=== PATIENT | male | born 1975 | race Hispanic/Latino ===

== ENCOUNTER → 2020-02-16 | Outpatient (CLI) | payer BC ==
--- NOTE | 2020-02-16 15:46 | RAD ---
EXAM DESCRIPTION: Pelvis CLINICAL HISTORY: HIP PAIN COMPARISON: None. TECHNIQUE: AP pelvis FINDINGS: Phleboliths are observed in the left side the pelvis. The hips are intact. No fracturing is detected. Minimal acetabular osteophyte formation is observed. No soft tissue mass is observed. IMPRESSION: Minimal degenerative changes are observed in the hips. The exam is otherwise unremarkable. No fracturing is detected. Electronically signed by: Jj Rogers MD 02/16/2020 3:44 PM CDT
--- NOTE | 2020-02-16 15:47 | RAD ---
EXAM DESCRIPTION: Knee,Left Complete CLINICAL HISTORY: KNEE PAIN COMPARISON: None. TECHNIQUE: 4 views left FINDINGS: Mild degenerative changes are observed in the patellofemoral articulation. Possible calcified loose bodies observed posterior to the joint. Loss of medial joint space is observed. Lateral tibial and femoral osteophyte formation is observed. No fracture is detected. 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 There is also possible calcified loose body posterior to the joint along the medial side. Electronically signed by: Jj Rogers MD 02/16/2020 3:46 PM CDT
== END ==
LOC: RAD 10:54
PROVIDERS: ATTEND Orthopaedic Surgery
DX: M17.12 Unilateral primary osteoarthritis, left knee (principal); M16.0 Bilateral primary osteoarthritis of hip